=== PATIENT | male | born 1980 | race African-American/Black ===

== ENCOUNTER 2022-10-26 05:41 | Emergency (ER) | payer MEDICAID ==
[~2022-10-26] VITALS: Ht 182.9 cm; Wt 74.0 kg
[2022-10-26 07:06] LABS: BASOPHILS % 0.3 % (0.0-2.0); EOSINOPHILS % 0.3 % (0.0-5.0); HEMATOCRIT. 38.5 % (42.0-52.0); HEMOGLOBIN. 13.2 g/dL (14.0-18.0); LYMPHOCYTES % 10.5 % (20.0-50.0); MEAN CORPUSCULAR HEMOGLOBIN 34.8 pg (28.0-32.0); MEAN CORPUSCULAR VOLUME 101.9 fL (80.0-94.0); MEAN PLATELET VOLUME 8.5 fl (7.4-10.4); NEUTROPHILS % 79.9 % (40.0-76.0); PLATELET 213 x1000/uL (130-400); RED BLOOD CELL COUNT 3.78 mill/uL (4.7-6.1); RED CELL DISTRIBUTION WIDTH 13.3 % (11.6-14.6)
[2022-10-26 07:14] LABS: CHLORIDE 100 mEq/L (98-107)
[2022-10-26 07:23] LABS: ETHANOL BLOOD < 10 mg/dL
[2022-10-26 08:20] VITALS: BP 108/72
== END 2022-10-26 09:48 | disposition home or self-care (01) ==
LOC: ER 05:41
DX: R56.9 Unspecified convulsions (principal)
CPT/HCPCS: 36415; 80053; 80320; 85025; 99283; Z7610; G0480

== ENCOUNTER 2023-11-14 19:56 | Emergency (ER) | payer MEDICAID, OTHER ==
[~2023-11-14] VITALS: Ht 172.7 cm; Wt 68.0 kg
[2023-11-14 20:11] VITALS: O2SAT 97
[2023-11-14 20:20] VITALS: TEMP 97.9
[2023-11-14 20:45] LABS: BASOPHILS % 1.3 % (0.0-2.0); DIFFERENTIAL COMMENT 0; EOSINOPHILS % 2.8 % (0.0-5.0); HEMATOCRIT. 35.2 % (42.0-52.0); HEMOGLOBIN. 12.1 g/dL (14.0-18.0); LYMPHOCYTES % 50.7 % (20.0-50.0); MEAN CORPUSCULAR HEMOGLOBIN 34.4 pg (28.0-32.0); MEAN CORPUSCULAR HGB CONC 34.3 g/dL (31.0-37.0); MEAN CORPUSCULAR VOLUME 100.2 fL (80.0-94.0); MEAN PLATELET VOLUME 7.1 fl (7.4-10.4); MONOCYTES % 10.6 % (2.0-8.0); NEUTROPHILS % 34.6 % (40.0-76.0); PLATELET 362 x1000/uL (130-400); RED BLOOD CELL COUNT 3.51 mill/uL (4.7-6.1)
[2023-11-14 20:50] LABS: CHLORIDE 109 mEq/L (98-107); POTASSIUM 3.9 mEq/L (3.5-5.1); SODIUM 142 mEq/L (136-145)
[2023-11-14 20:51] LABS: CALCIUM 8.4 mg/dL (8.7-10.4); CARBON DIOXIDE 27 mEq/L (21-32)
[2023-11-14 20:56] LABS: CREATININE 0.9 mg/dL (0.6-1.3); GLUCOSE 101 mg/dL (70-105); UREA NITROGEN BLOOD 8 mg/dL (9-23)
[2023-11-14 21:06] LABS: ETHANOL BLOOD 318 mg/dL (<10)
[2023-11-14] MEDS: LEVETIRACETAM 500MG PREMIX 100 ML IV ONE (21:24)
[2023-11-14] MEDS: CHLORDIAZEPOXIDE 25MG CAPSULE PO ONE (22:34)
[2023-11-14] MEDS: SODIUM CHLORIDE 0.9% 1,000 ML IV ONE (22:34)
[2023-11-15 05:33] VITALS: BP 107/80; PULSE 75; RESP 16
== END 2023-11-15 04:52 | disposition home or self-care (01) ==
LOC: ER 19:56
DX: T51.0X1A Toxic effect of ethanol, accidental (unintentional), initial encounter (principal); G40.909 Epilepsy, unspecified, not intractable, without status epilepticus; W18.39XA Other fall on same level, initial encounter; Y93.89 Activity, other specified; Y99.8 Other external cause status; Y92.89 Other specified places as the place of occurrence of the external cause
CPT/HCPCS: 80048; 80320; 85025; 36415; 71045; 70450; 93005; 96361; 96365; 99285; J1953; J7030; G0480

== ENCOUNTER 2025-02-22 09:23 | Emergency (ER) | payer MEDICAID ==
[~2025-02-22] VITALS: Ht 175.3 cm; Wt 63.5 kg
[~2025-02-22 09:23] MED LIST: LEVE1000 PO
[2025-02-22 09:29] VITALS: O2SAT 99
[2025-02-22 10:05] LABS: BASOPHILS % 0.8 % (0.0-2.0); EOSINOPHILS % 1.1 % (0.0-5.0); HEMATOCRIT. 39.6 % (42.0-52.0); HEMOGLOBIN. 13.3 g/dL (14.0-18.0); LYMPHOCYTES % 24.1 % (20.0-50.0); MEAN PLATELET VOLUME 8.2 fl (7.4-10.4); MONOCYTES % 9.7 % (2.0-8.0); NEUTROPHILS % 64.3 % (40.0-76.0); PLATELET 282 x1000/uL (130-400); RED BLOOD CELL COUNT 3.84 mill/uL (4.7-6.1); RED CELL DISTRIBUTION WIDTH 14.1 % (11.6-14.6)
[2025-02-22 10:19] LABS: CREATININE 0.9 mg/dL (0.6-1.3)
[2025-02-22 10:20] LABS: ETHANOL BLOOD < 10 mg/dL (<10); UREA NITROGEN BLOOD < 5 mg/dL (9-23)
[2025-02-22] MEDS: LEVETIRACETAM 1000MG PREMIX 100 ML IV ONE (10:23)
[2025-02-22 13:55] VITALS: BP 125/80; PULSE 52; RESP 14; TEMP 37.2; O2SAT 98
== END 2025-02-22 14:30 | disposition home or self-care (01) ==
LOC: ER 09:23
DX: G40.909 Epilepsy, unspecified, not intractable, without status epilepticus (principal); I10 Essential (primary) hypertension; Z79.899 Other long term (current) drug therapy
CPT/HCPCS: 80048; 80320; 85025; 36415; 93005; 96365; 99284; J1953; G0480